=== PATIENT | female | born 1955 | race Caucasian/White ===

== ENCOUNTER 2017-03-28 08:00 | Day surgery (SDC) | payer OTHER ==
[~2017-03-28] VITALS: Ht 165.1 cm; Wt 86.2 kg
[~2017-03-28 08:00] MED LIST: 0.9% Sodium Chloride 1,000 ML IV SCH; ADV250INH IH; ALBU18HF INH; CALC430T PO; CHOL5000 PO; FEXO1TAB7 PO; IBUP200C11 PO; LEVO88TA3 PO; Sodium Chloride LOK Flush 10 mL Syringe IV PRN; fentaNYL-PF 50 mCg/mL 2 mL Inj IVPUSH PRN
[2017-03-28 08:17] VITALS: BP 123/78; PULSE 75; RESP 14; O2SAT 92
[2017-03-28 09:12] VITALS: BP 120/67; PULSE 77; RESP 16; O2SAT 96
[2017-03-28 09:20] VITALS: BP 111/61; PULSE 74; RESP 16; O2SAT 95
--- NOTE | 2017-03-28 09:24 | ENDO ---
[address] [address] ENDOSCOPY PROCEDURE PATIENT: ROGER REECE : 1955 MR#: [id number] ADMIT: 03/28/2017 JOB ID: [id number] DATE OF SERVICE: 03/28/2017 PREOPERATIVE DIAGNOSIS: Personal history of large rectal villous adenoma. POSTOPERATIVE DIAGNOSIS: Normal colonoscopy to cecum. OPERATION: Colonoscopy to cecum. SURGEON: Castillo Ramsey MD. INDICATIONS: A 61-year-old female who previously had a large rectal villous adenoma that I excised transanally, and she is here for followup colonoscopy. FINDINGS: She had a good prep. The scope was advanced into the cecum. Clear visualization of the appendiceal orifice and ileocecal valve. I did not intubate the terminal ileum. The scope was withdrawn over 6 minutes 45 seconds. No abnormalities were identified. There was no evidence of polyps, diverticulosis, inflammatory lesions or vascular lesions. Retroflex views of the rectum were normal. DESCRIPTION OF PROCEDURE: The procedure and sedation plan was discussed with the patient and nursing staff, and a procedural time-out was held. She received 4 mg of Versed and 100 mcg of fentanyl. Olympus PCF-H190DL video colonoscope was passed transanally, advanced to the cecum, withdrawn over 6 minutes 45 seconds with results stated above. Retroflexed views of the rectum were obtained. IMPRESSION: Normal colonoscopy to the cecum. RECOMMENDATIONS: Repeat colonoscopy in five years.
[2017-03-28 09:30] VITALS: BP 130/68; PULSE 87; RESP 16; O2SAT 93
== END 2017-03-28 23:59 | disposition home or self-care (01) ==
LOC: END 08:00
PROVIDERS: ATTEND Surgery
DX: Z12.11 Encounter for screening for malignant neoplasm of colon (principal); Z86.010 Personal history of colon polyps; E78.5 Hyperlipidemia, unspecified; J45.909 Unspecified asthma, uncomplicated; R73.01 Impaired fasting glucose; R73.03 Prediabetes; K90.41 Non-celiac gluten sensitivity
CPT/HCPCS: G0105; G0500; J7030